=== PATIENT | male | born 1975 ===

== ENCOUNTER 2020-05-23 02:54 | Inpatient (IN) | payer OTHER ==
[2020-05-23 04:13] VITALS: BMI 31.1
[2020-05-23] MEDS: MORPHINE 2 MG/ML SYR IV PRN ×2 (05:54→07:48)
[2020-05-23] MEDS ORDERED: PIPER/TAZO/NS 3.375gm 3.375 GM/100 ML BAG ONE (06:32)
[2020-05-23] MEDS ORDERED: PIPER/TAZO/NS 3.375gm 3.375 GM/100 ML BAG IVPB ONE (08:00)
[2020-05-23] MEDS ORDERED: Ringers Lactate 1,000 ML IV ONE (09:39)
[2020-05-23] MEDS ORDERED: FENTANYL CITR 100 MCG/2 ML ONE ×2 (09:59→10:37)
[2020-05-23] MEDS ORDERED: propofoL 200 MG/20 ML VIAL IV ONE (09:59)
[2020-05-23] MEDS ORDERED: ROCURONIUM 50 MG/5 ML VIAL IV ONE (10:00)
[2020-05-23] MEDS ORDERED: LIDOCAINE 2% MPF 5 ML VIAL ONE (10:00)
[2020-05-23] MEDS ORDERED: dexAMETHasone 10 MG/ML VIAL ONE (10:26)
[2020-05-23] MEDS ORDERED: ONDANSETRON 4 MG/2 ML VIAL ONE (10:26)
[2020-05-23] MEDS ORDERED: KETOROLAC 30 MG/ML INJ ONE (10:26)
[2020-05-23] MEDS ORDERED: NEOSTIGMINE 1 MG/ML -5 ML ONE (10:50)
[2020-05-23] MEDS ORDERED: GLYCOPYRROLATE 0.2 MG/ML SYR ONE (10:50)
[2020-05-23] MEDS ORDERED: SODIUM CHLORIDE 0.9% 10ML INJ IV PRN (11:19)
[2020-05-23] MEDS ORDERED: ONDANSETRON 4 MG/2 ML VIAL IV PRN (11:19)
--- NOTE | 2020-05-23 11:23 | P.BOP ---
Preoperative diagnosis: acute appendicitis Postoperative diagnosis: acute suppurative appendicitis Primary procedure: Laparoscopic appendectomy Estimated blood loss: <20cc Specimen: sara Findings: see dicta Anesthesia: General Complications: None Drain(s): NANI drain Transferred to: Recovery Room Condition: Good
[2020-05-23] MEDS ORDERED: PIPER/TAZO/NS 3.375gm 3.375 GM/100 ML BAG IVPB SCH (12:00)
[2020-05-23 12:05] VITALS: O2SAT 96
[2020-05-23] MEDS: PANTOPRAZOLE 40 MG INJ IVP SCH (13:03)
[2020-05-23] MEDS: NA CHLORIDE 0.9% 1,000 ML IV SCH ×2 (13:03→20:59)
[2020-05-23] MEDS: HYDROCODONE/APAP 7.5/325 MG TAB PO PRN ×2 (16:42→21:00)
--- NOTE | 2020-05-23 21:30 | HP ---
Date of Admission: 05/23/2020 Chief Complaint: Right lower quadrant abdominal pain, acute appendicitis. History Of Present Illness: This is a case of a 44-year-old patient, who comes to us with abdominal pain for the last 12 hours at least associated with nausea, no vomiting. The pain started in the per iumbilical region, moved to the right lower quadrant. He does not remember eating anything out of th e usual and denies any family member sick at home. He denies any dysuria, hematuria, hematochezia, m jarred. No previous colonoscopies. Review of Systems: Ten points otherwise unremarkable. Medical History: Morbid obesity. Surgical History: None. Social History: He does not smoke, drinks alcohol occasionally. Medications: Propecia. Family History: Noncontributory. Physical Examination: General: Patient is awake and alert. HEENT: Pupils are equal and reactive, anicteric. Neck: Supple. Chest: Clear. Abdomen: Right lower quadrant tenderness with Rovsing sign positive. Genitalia: Fair. Rectal: Deferred. Extremities: Good capillary refill. Neurologic: Cranial nerves 2 through 12 grossly within normal limits. Imaging: CAT scan shows acute appendicitis. Laboratory Data: WBC count 17.1. Assessment: This is a 44-year-old patient with acute appendicitis, transferred from another [facility] outpatient emergency room. Patient was brought today to this institution and fully explained the need for emergent laparoscopic, possible open appendectomy with benefits, alternatives, and risks in cluding, but not limited to infection, bleeding, damage to adjacent structures, anesthesia complicati on, NC, even . He also understands this may not relieve any symptoms. He might need more than one surgical intervention. The OR was called stat. OLAYINKA/MODL Voice ID: [id number]
--- NOTE | 2020-05-23 21:30 | OP ---
Date of Procedure: 05/23/2020 Surgeon: Blake Hutson MD Preoperative Diagnosis: Acute appendicitis. Postoperative Diagnosis: Acute suppurative appendicitis. Procedure: Emergent laparoscopic appendectomy. Anesthesia: General plus local. Finding: Acute suppurative appendicitis. Drains: NANI #10. Indications: This is a case of a 44-year-old patient with acute abdominal pain, taken to the OR afte r fully explained the need of laparoscopic, possible open appendectomy, which include, but not limite d to infection, bleeding, damage to adjacent structures, anesthesia complication, [place], and even . He also understands this may not relieve any symptoms. He might need more than one surgical interv ention. He understood, signed the consent. Description Of Procedure: Patient was brought to the operating room, placed in supine position. Ane sthesia was done without complication. Time-out was called. Abdominal area was prepped and draped i n a sterile fashion. Marcaine 0.5% was injected for local anesthetic, followed by sharp incision of the skin in the periumbilical region. Incision was carried down to fascia, which was opened under di rect vision. Peritoneum was encountered, opened under direct vision. Vicryl #1 was placed inside th e fascia. Danica trocar was carefully introduced. No bleeding was obtained. I placed 2 more trocar s 5 mm each one of them, one in the suprapubic area, another one in left lower quadrant under direct visualization. This allowed me to visualize the area of the appendix, look retrocecal so the cecum h as to be mobilized in order for us to get access to that appendix. When we saw the appendix, we noti guzman an inflamed suppurative appendicitis. Irrigation was done of that area. After mobilizing the ce cum medially, we were able to remove the appendix from the area making sure we protect the rest of th e structures including ureters. We created a window in the base of the appendix, which seemed to be spared from the inflammation and transected that with Endo MAINE 45 mm 3.5 and the mesoappendix sequent ially with Endo MAINE 45 mm 2.5. Appendix was removed from abdominal cavity using the EndoCatch throug h the umbilical incision. I did the area and inspected the area once again. Profuse irrigation was done in that area. Left a NANI drain in the right lower quadrant exiting through one of the trocar sit es and that was done under direct visualization. At that moment, I proceeded to remove trocars under direct vision, deflated pneumoperitoneum, closed the fascia with #1 Vicryl, irrigated subcutaneous t issue, closed that with chromic, and then skin with nava. Sponge count and instrument counts michel ect. Patient tolerated the procedure well. Patient sent to recovery in stable condition. OLAYINKA/DARRON Voice ID: [id number] Report ID: [id number]
[2020-05-24] MEDS: HYDROCODONE/APAP 7.5/325 MG TAB PO PRN ×3 (04:48→13:53)
[2020-05-24] MEDS: NA CHLORIDE 0.9% 1,000 ML IV SCH (04:49)
[2020-05-24 05:57] LABS: Absolute Lymphocytes (CBC) 0.6 K/uL (0.7-4.9); Basophils % 0.1 % (0-1.3); Hematocrit 36.4 % (39.6-49.0); Lymphocytes % 5.1 % (15.3-44.8); MPV 8.1 fL (7.6-11.3)
[2020-05-24 06:01] LABS: Potassium 3.8 mmol/L (3.5-5.1)
[2020-05-24 09:04] LABS: Blood Morphology Comment NOT SEEN (NOT SEEN); Platelet Estimate ADEQ
[2020-05-24] MEDS: PANTOPRAZOLE 40 MG INJ IVP SCH (09:07)
[2020-05-24 10:06] VITALS: BP 94/47; TEMP 97.6
--- NOTE | 2020-05-25 00:07 | DS ---
Date of Discharge: 05/24/2020 Diagnoses: Acute suppurative appendicitis, morbid obesity. Procedure: Laparoscopic appendectomy. History Of Present Illness: This is the case of a 44-year-old patient underwent emergent appendectom y uneventfully. The patient tolerated diet, passing flatus. No shortness of breath. No chest pain. Physical Examination: Chest: Clear. Abdomen: Soft and depressible. NANI serosanguineous. No pus. No janette blood. Extremities: Good capillary refill. Laboratory Data: Blood work shows 11.7. The patient will be discharged home. Activity: As tolerated, no heavy lifting Plan: Follow up in my office on Monday, call for appointment [phone]. Medications: Include Levaquin 750 p.o. daily, Zofran 40 q.6 hours p.r.n. nausea and Tylenol No.3 q. 4 hours p.r.n. pain. OLAYINKA/DARRON Voice ID: [id number] Report ID: [id number]
== END 2020-05-24 17:05 | disposition home or self-care (01) | DRG 343 ==
LOC: 2ND 03:23
PROVIDERS: ADMIT Surgery; ATTEND Surgery
PROC: 0DTJ4ZZ Resection of Appendix, Percutaneous Endoscopic Approach (ICD-10-PCS; principal; 2020-05-24)
PROC: 0W9G4ZZ Drainage of Peritoneal Cavity, Percutaneous Endoscopic Approach (ICD-10-PCS; 2020-05-24)
DX: K35.80 Unspecified acute appendicitis (principal); E66.01 Morbid (severe) obesity due to excess calories; Z68.31 Body mass index [BMI] 31.0-31.9, adult; Z11.59 Encounter for screening for other viral diseases
CPT/HCPCS: 36415; 80048; 85025; 88304; C9113; J1100; J2270; J2405; J2543; J2704; J2710; J3010; J7030; J7120; U0002